=== PATIENT | male | born 1995 | race Caucasian/White ===

== ENCOUNTER 2023-08-21 16:33 | Observation (INO) ==
[2023-08-21 17:28] LABS: Appearance Urine Clear (Clear); Bacteria Urine Automated Negative (Negative); Bilirubin Urine Negative (Negative); Blood Urine Negative (Negative); Color Urine Dark Yellow; Epithelial Cell Urine Auto >30 /lpf (0-5); Glucose Urine UA Negative (Negative); Ketones Urine Trace (Negative); Leukocyte Esterase Urine Negative (Negative); Nitrite Urine Negative (Negative); Protein Urine Trace (Negative); RBC Urine Automated 0-4 /hpf (0-4); Specific Gravity Urine 1.027 (1.000-1.030); Urobilinogen Urine Negative (Negative); pH Urine 5.5 (4.5-7.5)
[2023-08-21] MEDS ORDERED: ONDANSETRON INJ 2 MG/ML 2 ML VIAL IV STA (17:32)
[2023-08-21] MEDS ORDERED: SODIUM CHLORIDE 0.9% 1,000 ML IV ONE (17:32)
--- NOTE | 2023-08-21 17:38 | Emergency Department Note ---
History of Present Illness General Chief complaint: Abdominal Pain Stated complaint: ABDOMINAL PAIN, NAUSEA/VOMITING Time Seen by Provider: 08/21/23 17:11 History of Present Illness Maximum Pain Intensity: 5 28-year-old male presents emergency department he states that at around 11 AM today he had upper quadrant abdominal pain nausea and vomiting. Patient states that he did eat breakfast and then began vomiting. Patient's had prior episodes of the same but have not lasted this long. Patient denies any fever denies anorexia at denies right lower quadrant abdominal pain denies urinary symptoms denies testicular pain. Denies any recent infections. Patient thought in the past that he was developing irritable bowel syndrome. Patient did call the nurse at the primary care physician's office and was told to come the emergency department due to abdominal pain and vomiting. Home Medications Medication Instructions Recorded Confirmed Type rizatriptan 5 mg tablet See Rx Instructions PO .COMPLEX 08/21/23 08/21/23 History PRN Migraine Headache Allergies Allergy/AdvReac Type Severity Reaction Status Date / Time No Known Allergies Allergy Verified 08/21/23 18:45 Past Med/Surg History Medical History Hypothyroidism Surgical History S/P adenoidectomy S/P myringotomy with insertion of tube Family History Grandmother Diabetes Coronary heart disease Heart disease Sister Hyperthyroidism Rheumatoid arthritis Denies family history of Ovarian cancer Prostate cancer Myocardial infarction Breast cancer Colorectal cancer Social History Smoking Status: Never smoker Second Hand Exposure: No; Hx Alcohol Use: No Hx Substance Use: No Preferred Language: Fijian Visual Impairment: No Limitations Beliefs That Will Affect Care: None marital status: Single Current Living Situation: Family current occupational status: unemployed Feels Safe at Home: Yes Childhood Exposure to Second-Hand Smoke: No Diet: regular caffeine: Yes during the past year weight has: increased > 10 lbs Dental Care, Regularly: Yes Physical Activity Frequency: Daily Physical Activity Frequency Comment: walking dogs Seatbelt Use: always Sunscreen Use: Yes Assistive Devices: Contacts and Glasses Review of Systems A total of 10 systems reviewed and were otherwise negative Gastrointestinal: + abdominal pain and + vomiting Physical Exam Vital Signs Vital Signs - 24 hr 08/21/23 16:41 08/21/23 17:23 08/21/23 17:41 Temperature 36.7 C Temperature Source Temporal Artery Scan Pulse Rate 80 60 Pulse Rate [Apical] 67 Pulse Rate from SpO2 Sensor 65 Pulse Rhythm Regular Pulse Strength Normal Respiratory Rate 20 16 19 Respiratory Effort / Characteristics Non-Labored Spontaneous Respiratory Depth Normal Respiratory Pattern Regular Blood Pressure 96/73 L Blood Pressure [Left Arm] 130/69 Blood Pressure Mean 80 Blood Pressure Mean [Left Arm] 89 Blood Pressure Position Sitting Pulse Oximetry 97 98 99 Oxygen Delivery Method Room Air Room Air Sepsis Recent Fever Within 48 Hours No Sepsis New/Unexplained Change in Mental Status No Sepsis Action Taken by Nursing No Action Required 08/21/23 17:43 08/21/23 18:30 08/21/23 19:00 Temperature Temperature Source Pulse Rate 60 70 68 Pulse Rate [Apical] Pulse Rate from SpO2 Sensor Pulse Rhythm Pulse Strength Respiratory Rate 21 18 Respiratory Effort / Characteristics Respiratory Depth Respiratory Pattern Blood Pressure Blood Pressure [Left Arm] Blood Pressure Mean Blood Pressure Mean [Left Arm] Blood Pressure Position Pulse Oximetry Oxygen Delivery Method Sepsis Recent Fever Within 48 Hours Sepsis New/Unexplained Change in Mental Status Sepsis Action Taken by Nursing GENERAL: Patient is awake alert in no acute distress patient is resting comfortably and showing no signs of anxiety EYES: The conjunctivae are clear. The pupils are round and reactive. EARS, NOSE, MOUTH AND THROAT: The nose is without any evidence of any deformity. Mucous membranes are moist. Tongue is midline. NECK: The neck is nontender and supple. RESPIRATORY: Normal respiratory effort is noted there is no evidence of wheezing rhonchi or rales CARDIOVASCULAR: Regular rate and rhythm noted there no murmurs rubs or gallops normal S1 normal S2. GASTROINTESTINAL: The abdomen is soft. Abdomen has mild midepigastric tenderness to palpation. There is no right upper quadrant or right lower quadrant tenderness, there is no rebound rigidity or guarding. BACK: No midline tenderness or or step-off noted range of motion in flexion extension as well as rotation no signs of muscle spasm noted MUSCULOSKELETAL/EXTREMITIES: There is no evidence of gross deformity full range of motion is noted in the hips and shoulders. SKIN: There is no obvious evidence of any rash. There are no petechiae, pallor or cyanosis noted. NEUROLOGIC: Patient is awake alert and oriented x3 strength is symmetric Course Reevaluation(s) Reevaluation #1: Patient was started on IV Zosyn. Resting in no distress Time: 19:00 Consultations Consultation #1: Case was discussed with Dr. Azul from GI states does not need an ERCP Time: 18:00 Consultation #2: Spoke with Dr. Prado from surgery, he will see the patient admit the patient for cholecystitis Time: 18:05 Administered Medications Discontinued Medications Sodium Chloride (Nss) 1,000 mls @ 999 mls/hr IV .Q1H1M ONE Stop: 08/21/23 18:32 Last Infusion: 08/21/23 18:51 Dose: Infused Documented By: Admin: 08/21/23 17:43 Dose: 999 mls/hr Documented By: DE Piperacillin Sod/Tazobactam (Sod 4.5 gm/ Dextrose) 100 mls @ 200 mls/hr IV NOW ONE; Protocol Stop: 08/21/23 19:07 Last Admin: 08/21/23 18:51 Dose: Not Given Documented By: KALIA Ioversol (Optiray 320 500ml) 86 ml IV ONCE ONE Stop: 08/21/23 18:04 Last Admin: 08/21/23 18:03 Dose: 86 ml Documented By: MARGIE Ondansetron HCl (Ondansetron Inj 2 Mg/Ml 2 Ml Vial) 4 mg IV NOW STA Stop: 08/21/23 17:33 Last Admin: 08/21/23 17:43 Dose: 4 mg Documented By: DE Piperacillin Sod/Tazobactam Sod (Piperacillin/Tazobactam 4.5 Gm/100ml D5w) Confirm Administered Dose 4.5 gm IV .STK-MED ONE Stop: 08/21/23 18:44 Last Admin: 08/21/23 18:48 Dose: 4.5 gm Documented By: KALIA Medical Decision Making Medical Records Attestation: I reviewed the patient's medical records. Home Medications Current Medication List: was personally reviewed by me Laboratory Data Attestation: I reviewed the patient's lab results. Labs interpreted by me mild leukocytosis mild elevation in AST 08/21/23 17:00 08/21/23 18:20 Lab Results 08/21/23 08/21/23 08/21/23 Range/Units 16:05 17:00 18:20 WBC 11.29 H (4.8-10.8) K/ul RBC 6.11 H (4.70-6.10) M/uL Hgb 16.9 (14.0-18.0) g/dl Hct 49.6 (42.0-52.0) % MCV 81.2 (80.0-100.0) fL MCH 27.7 (25.0-34.0) pg MCHC 34.1 (32.0-36.0) g/dL RDW Std Deviation 37.6 (36.4-46.3) fL RDW Coeff of Marcelina 13.2 (11.5-14.5) % Plt Count 387 (130-400) K/uL MPV 9.6 (9.4-12.4) fL Immature Gran % (Auto) 0.5 % Neut % (Auto) 78.5 % Lymph % (Auto) 14.5 % [place] % (Auto) 5.0 % Eos % (Auto) 0.7 % Baso % (Auto) 0.8 % Neut # (Auto) 8.86 H (1.40-6.50) K/uL Lymph # (Auto) 1.64 (1.20-3.40) K/uL [place] # (Auto) 0.56 (0.11-0.59) K/uL Eos # (Auto) 0.08 (0.00-0.50) K/uL Baso # (Auto) 0.09 (0.00-0.20) K/uL Immature Gran # (Auto) 0.06 (0.01-0.20) K/uL Sodium 138 (136-145) mmol/L Potassium TNP 3.4 L Chloride 105 (98-107) mmol/L Carbon Dioxide 26 (21-32) mmol/L Anion Gap 7 (3-11) BUN 9 (6-23) mg/dl Creatinine 0.82 (0.6-1.4) mg/dl Est Cr Clr Drug Dosing 170.7 ml/min Est GFR ( Amer) 139.5 ml/min Est GFR (Non-Af Amer) 120.3 ml/min BUN/Creatinine Ratio 11.0 (10-20) Glucose 109 H (70-99(Fasting)) mg/dl Calcium 9.3 (8.6-10.3) mg/dl Total Bilirubin 0.6 (0.2-1.0) mg/dl AST TNP 32 ALT 66 H (7-52) U/L Alkaline Phosphatase 119 H (34-104) U/L Total Protein 8.2 (6.0-8.3) gm/dl Albumin 4.6 (3.4-5.0) gm/dl Globulin 3.6 (2.5-4.0) gm/dl Albumin/Globulin Ratio 1.3 (0.9-2) Lipase 17 (11-82) U/L Urine Color Dark Yellow Urine Appearance Clear (Clear) Urine pH 5.5 (4.5-7.5) Ur Specific [place] 1.027 (1.000-1.030) Urine Protein Trace H (Negative) Urine Glucose (UA) Negative (Negative) Urine Ketones Trace H (Negative) Urine Blood Negative (Negative) Urine Nitrite Negative (Negative) Urine Bilirubin Negative (Negative) Urine Urobilinogen Negative (Negative) Ur Leukocyte Esterase Negative (Negative) Urine WBC (Auto) 1-5 (0-5) /hpf Urine RBC (Auto) 0-4 (0-4) /hpf U Hyaline Cast (Auto) 0 (0-5) /lpf U Epithel Cells (Auto) >30 H (0-5) /lpf Urine Bacteria (Auto) Negative (Negative) Imaging Data Radiologist's Impression: Abdomen/Pelvis CT 08/21/23 17:[address] WITH IV CONTRAST CT DOSE: 1565.19 mGy.cm HISTORY: Generalized abdominal pain. Vomiting. TECHNIQUE: Multiaxial CT images of the abdomen and pelvis were performed following the use of intravenous contrast. A dose lowering technique was utilized adhering to the principles of ALARA. COMPARISON STUDY: None. FINDINGS: The lung bases are clear. No pneumoperitoneum. No pneumatosis. No acute fractures. No hepatic or splenic masses. The main portal vein is patent. The adrenal glands, pancreas, kidneys are unremarkable. Normal caliber abdominal aorta. No retroperitoneal or pelvic lymphadenopathy. Mild bladder wall thickening is likely due to underdistention. Trace pelvic free fluid. There is mild fat stranding within the central mesentery. No mesenteric lymphadenopathy. The gallbladder is distended. No gallbladder wall thickening or pericholecystic inflammatory change. Multiple stones within the neck/cystic duct of the gallbladder dominant stone within the neck of the gallbladder measures 3 cm. No hydronephrosis. No bowel wall thickening or obstruction. Normal appendix. IMPRESSION: 1. Multiple stones within the gallbladder neck/cystic duct with a distended gallbladder. Therefore, this could represent an impacted gallstone in the setting of early acute cholecystitis. No gallbladder wall thickening or pericholecystic inflammatory change at this time. Clinical correlation and/or nuclear medicine HIDA scan can be performed for further evaluation. 2. Mild fat stranding within the central mesentery. This favors a mild mesenteric panniculitis. 3. No bowel wall thickening or obstruction. 4. Normal appendix. 5. Trace pelvic free fluid. 6. Mild bladder wall thickening. This is likely due to underdistention. Recommend correlation with urinalysis to exclude a cystitis. ACT 112: Negative or not required by law. Electronically signed by: Gustavo Valenzuela M.D. 08/21/2023 6:25 PM MDM Narrative Medical decision making differential diagnosis includes gastritis, gastroenteritis, biliary colic, pancreatitis, metabolic derangement, bowel obstruction, early appendicitis, dehydration Plan is to check labs, CT abdomen pelvis, give IV fluids, Zofran I did review the patient's note of 08/30/2022 from primary care in which the patient had mood disorder but there is no complaints of abdominal pain at that time Patient has a positive CAT scan for gallstones and probably early cholecystitis. Patient's labs are showing a sign of leukocytosis. Patient was started on IV Zosyn. Patient will be admitted to general surgery for surgical intervention Impression & Plan Cholecystitis with cholelithiasis Discharge Plan Visit Data Chief Complaint: Abdominal Pain Stated Complaint: ABDOMINAL PAIN, NAUSEA/VOMITING ED Provider: Rito Purdy Discharge Problem: Cholecystitis with cholelithiasis Patient Disposition: Admitted As Inpatient Forms Stand Alone Forms: [facility], Important Visit Information Prescriptions Prescriptions: No Action rizatriptan 5 mg tablet See Rx Instructions PO .COMPLEX PRN (Reason: Migraine Headache) Rx Instructions: take 1 tablet at onset of headache; if no relief, may repeat 1 tablet after at least 2 hrs PO Referrals Referrals: Aldo Gibbs MD [Primary Care Provider] - Discharge Problem: Cholecystitis with cholelithiasis Qualifiers: Cholelithiasis location: gallbladder Cholecystitis acuity: acute Biliary obstruction: without biliary obstruction Qualified Code(s): K80.00 - Calculus of gallbladder with acute cholecystitis without obstruction
[2023-08-21 17:43] LABS: Basophils # (auto) 0.09 K/uL (0.00-0.20); Basophils % (auto) 0.8 %; Eosinophils # (auto) 0.08 K/uL (0.00-0.50); Eosinophils % (auto) 0.7 %; Hematocrit (blood only) 49.6 % (42.0-52.0); Hemoglobin 16.9 g/dl (14.0-18.0); Immature Granulocytes # (auto) 0.06 K/uL (0.01-0.20); Immature Granulocytes % (auto) 0.5 %; Lymphocytes # (auto) 1.64 K/uL (1.20-3.40); Lymphocytes % (auto) 14.5 %; Mean Corpuscular Hemoglobin 27.7 pg (25.0-34.0); Mean Corpuscular Hgb Conc 34.1 g/dL (32.0-36.0); Mean Corpuscular Volume 81.2 fL (80.0-100.0); Mean Platelet Volume 9.6 fL (9.4-12.4); Monocytes # (auto) 0.56 K/uL (0.11-0.59); Neutrophils # (auto) 8.86 K/uL (1.40-6.50); Neutrophils % (auto) 78.5 %; Platelet Count 387 K/uL (130-400); RDW Coefficient of Variation 13.2 % (11.5-14.5); RDW Standard Deviation 37.6 fL (36.4-46.3); Red Blood Count 6.11 M/uL (4.70-6.10); White Blood Count 11.29 K/ul (4.8-10.8)
[2023-08-21 17:51] LABS: Alanine Aminotransferase 66 U/L (7-52); Albumin Globulin Ratio 1.3 (0.9-2); Albumin Level 4.6 gm/dl (3.4-5.0); Alkaline Phosphatase 119 U/L (34-104); Anion Gap 7 (3-11); Bilirubin,Total 0.6 mg/dl (0.2-1.0); Blood Urea Nitrogen 9 mg/dl (6-23); Calcium 9.3 mg/dl (8.6-10.3); Carbon Dioxide 26 mmol/L (21-32); Chloride 105 mmol/L (98-107); Creatinine Clr Calc Pharmacy 170.7 ml/min; Est GFR (African American) 139.5 ml/min; Est GFR (Non-African American) 120.3 ml/min; Globulin 3.6 gm/dl (2.5-4.0); Glucose 109 mg/dl (70-99(Fasting)); Lipase 17 U/L (11-82); Sodium 138 mmol/L (136-145); Total Protein 8.2 gm/dl (6.0-8.3)
[2023-08-21] MEDS ORDERED: OPTIRAY 320 500ml IV ONE (18:03)
[2023-08-21 18:18] LABS: Cast Urine Automated 0 /lpf (0-5)
--- NOTE | 2023-08-21 18:27 | CT Scan Report ---
ABDOMEN AND PELVIS CT WITH IV CONTRAST CT DOSE: 1565.19 mGy.cm HISTORY: Generalized abdominal pain. Vomiting. TECHNIQUE: Multiaxial CT images of the abdomen and pelvis were performed following the use of intrave nous contrast. A dose lowering technique was utilized adhering to the principles of ALARA. COMPARISON STUDY: None. FINDINGS: The lung bases are clear. No pneumoperitoneum. No pneumatosis. No acute fractures. No hepat ic or splenic masses. The main portal vein is patent. The adrenal glands, pancreas, kidneys are unrem arkable. Normal caliber abdominal aorta. No retroperitoneal or pelvic lymphadenopathy. Mild bladder w all thickening is likely due to underdistention. Trace pelvic free fluid. There is mild fat stranding within the central mesentery. No mesenteric lymphadenopathy. The gallbladder is distended. No gallbl adder wall thickening or pericholecystic inflammatory change. Multiple stones within the neck/cystic duct of the gallbladder dominant stone within the neck of the gallbladder measures 3 cm. No hydroneph rosis. No bowel wall thickening or obstruction. Normal appendix. IMPRESSION: 1. Multiple stones within the gallbladder neck/cystic duct with a distended gallbladder. Therefore, t his could represent an impacted gallstone in the setting of early acute cholecystitis. No gallbladder wall thickening or pericholecystic inflammatory change at this time. Clinical correlation and/or nuc lear medicine HIDA scan can be performed for further evaluation. 2. Mild fat stranding within the central mesentery. This favors a mild mesenteric panniculitis. 3. No bowel wall thickening or obstruction. 4. Normal appendix. 5. Trace pelvic free fluid. 6. Mild bladder wall thickening. This is likely due to underdistention. Recommend correlation with ur inalysis to exclude a cystitis. ACT 112: Negative or not required by law. Electronically signed by: Gustavo Valenzuela M.D. 08/21/2023 6:25 PM
[2023-08-21] MEDS ORDERED: PIPERACILLIN/TAZOBACTAM 4.5 GM in DEXTROSE 5% MINI-B 100 ML IV ONE (18:38)
[2023-08-21] MEDS ORDERED: PIPERACILLIN/TAZOBACTAM 4.5 GM/100ML D5W IV ONE (18:43)
[2023-08-21 18:58] LABS: Potassium 3.4 mmol/L (3.5-5.1)
--- NOTE | 2023-08-21 19:59 | History & Physical Report ---
Date of Service August 21, 2023 Assessment & Plan (1) Cholecystitis with cholelithiasis: Plan 28-year-old gentleman with acute cholecystitis. I discussed with him the risks and benefits of a laparoscopic cholecystectomy. We discussed the postoperative course and recovery. All his questions were answered. We will admit him to the hospital for IV fluids and IV antibiotics. He will be n.p.o. We will plan for laparoscopic cholecystectomy in the morning. History of Present Illness Primary Care Provider: Aldo Gibbs MD 28-year-old gentleman presents with epigastric and right upper quadrant pain starting at 9 AM this morning. It has not relented. It is radiating to his back. It is dull with some sharp stabbing pain. Positive nausea and vomiting. Positive chills. He states that he has had 3 episodes in the last 3 months similar to this, however not as bad. CT scan demonstrates large stone in the neck of the gallbladder, with a distended gallbladder. Allergies Allergy/AdvReac Type Severity Reaction Status Date / Time No Known Allergies Allergy Verified 08/21/23 18:45 Home Medications Medication Instructions Recorded Confirmed Type rizatriptan 5 mg tablet See Rx Instructions PO .COMPLEX 08/21/23 08/21/23 History PRN Migraine Headache Past Med/Surg History Medical History Hypothyroidism Surgical History S/P adenoidectomy S/P myringotomy with insertion of tube Family History Grandmother Diabetes Coronary heart disease Heart disease Sister Hyperthyroidism Rheumatoid arthritis Denies family history of Ovarian cancer Prostate cancer Myocardial infarction Breast cancer Colorectal cancer Social History Smoking Status: Never smoker Second Hand Exposure: No; Hx Alcohol Use: No Hx Substance Use: No Preferred Language: Albanian Visual Impairment: No Limitations Beliefs That Will Affect Care: None marital status: Single Current Living Situation: Family current occupational status: unemployed Feels Safe at Home: Yes Childhood Exposure to Second-Hand Smoke: No Diet: regular caffeine: Yes during the past year weight has: increased > 10 lbs Dental Care, Regularly: Yes Physical Activity Frequency: Daily Physical Activity Frequency Comment: walking dogs Seatbelt Use: always Sunscreen Use: Yes Assistive Devices: Contacts and Glasses Review of Systems Review of Systems: All systems reviewed & are unremarkable except as noted in HPI & below Physical Exam Constitutional: WD/WN, vitals as above Eyes: PERRL, conjunctivae normal, anicteric sclerae Neck: trachea midline, no thyromegaly Respiratory: normal respiratory effort; no respiratory distress and no labored breathing Cardiovascular: Rate/Rhythm: regular rate and regular rhythm Gastrointestinal (Abdomen): Inspection/Auscultation: abdomen normal to inspection; abdomen not distended Percussion/Palpation: + abdomen tender (RUQ, mild) and abdomen soft; no guarding and abdomen not rigid Skin: no rashes, warm and dry Psychiatric: A+Ox3, euthymic affect Results & Data Results & Data Vital Signs (Past 12 Hours) Vital Signs Temp Pulse Pulse Resp BP BP Pulse Ox 08/21/23 19:00 68 18 08/21/23 18:30 70 21 08/21/23 17:43 60 08/21/23 17:41 60 19 99 08/21/23 17:23 67 16 130/69 98 08/21/23 16:41 36.7 C 80 20 96/73 L 97 O2 Del Method 08/21/23 19:00 08/21/23 18:30 08/21/23 17:43 08/21/23 17:41 Room Air 08/21/23 17:23 08/21/23 16:41 Room Air Laboratory Results 08/21/23 08/21/23 08/21/23 Range/Units 18:20 17:00 16:05 WBC 11.29 H (4.8-10.8) K/ul RBC 6.11 H (4.70-6.10) M/uL Hgb 16.9 (14.0-18.0) g/dl Hct 49.6 (42.0-52.0) % MCV 81.2 (80.0-100.0) fL MCH 27.7 (25.0-34.0) pg MCHC 34.1 (32.0-36.0) g/dL RDW Std Deviation 37.6 (36.4-46.3) fL RDW Coeff of Marcelina 13.2 (11.5-14.5) % Plt Count 387 (130-400) K/uL MPV 9.6 (9.4-12.4) fL Immature Gran % (Auto) 0.5 % Neut % (Auto) 78.5 % Lymph % (Auto) 14.5 % [place] % (Auto) 5.0 % Eos % (Auto) 0.7 % Baso % (Auto) 0.8 % Neut # (Auto) 8.86 H (1.40-6.50) K/uL Lymph # (Auto) 1.64 (1.20-3.40) K/uL [place] # (Auto) 0.56 (0.11-0.59) K/uL Eos # (Auto) 0.08 (0.00-0.50) K/uL Baso # (Auto) 0.09 (0.00-0.20) K/uL Immature Gran # (Auto) 0.06 (0.01-0.20) K/uL Sodium 138 (136-145) mmol/L Potassium 3.4 L TNP Chloride 105 (98-107) mmol/L Carbon Dioxide 26 (21-32) mmol/L Anion Gap 7 (3-11) BUN 9 (6-23) mg/dl Creatinine 0.82 (0.6-1.4) mg/dl Est Cr Clr Drug Dosing 170.7 ml/min Est GFR ( Amer) 139.5 ml/min Est GFR (Non-Af Amer) 120.3 ml/min BUN/Creatinine Ratio 11.0 (10-20) Glucose 109 H (70-99(Fasting)) mg/dl Calcium 9.3 (8.6-10.3) mg/dl Total Bilirubin 0.6 (0.2-1.0) mg/dl AST 32 TNP ALT 66 H (7-52) U/L Alkaline Phosphatase 119 H (34-104) U/L Total Protein 8.2 (6.0-8.3) gm/dl Albumin 4.6 (3.4-5.0) gm/dl Globulin 3.6 (2.5-4.0) gm/dl Albumin/Globulin Ratio 1.3 (0.9-2) Lipase 17 (11-82) U/L Urine Color Dark Yellow Urine Appearance Clear (Clear) Urine pH 5.5 (4.5-7.5) Ur Specific [place] 1.027 (1.000-1.030) Urine Protein Trace H (Negative) Urine Glucose (UA) Negative (Negative) Urine Ketones Trace H (Negative) Urine Blood Negative (Negative) Urine Nitrite Negative (Negative) Urine Bilirubin Negative (Negative) Urine Urobilinogen Negative (Negative) Ur Leukocyte Esterase Negative (Negative) Urine WBC (Auto) 1-5 (0-5) /hpf Urine RBC (Auto) 0-4 (0-4) /hpf U Hyaline Cast (Auto) 0 (0-5) /lpf U Epithel Cells (Auto) >30 H (0-5) /lpf Urine Bacteria (Auto) Negative (Negative) Diagnostic Findings ABDOMEN AND PELVIS CT WITH IV CONTRAST CT DOSE: 1565.19 mGy.cm HISTORY: Generalized abdominal pain. Vomiting. TECHNIQUE: Multiaxial CT images of the abdomen and pelvis were performed following the use of intravenous contrast. A dose lowering technique was utilized adhering to the principles of ALARA. COMPARISON STUDY: None. FINDINGS: The lung bases are clear. No pneumoperitoneum. No pneumatosis. No acute fractures. No hepatic or splenic masses. The main portal vein is patent. The adrenal glands, pancreas, kidneys are unremarkable. Normal caliber abdominal aorta. No retroperitoneal or pelvic lymphadenopathy. Mild bladder wall thickening is likely due to underdistention. Trace pelvic free fluid. There is mild fat stranding within the central mesentery. No mesenteric lymphadenopathy. The gallbladder is distended. No gallbladder wall thickening or pericholecystic inflammatory change. Multiple stones within the neck/cystic duct of the gallbladder dominant stone within the neck of the gallbladder measures 3 cm. No hydronephrosis. No bowel wall thickening or obstruction. Normal appendix. IMPRESSION: 1. Multiple stones within the gallbladder neck/cystic duct with a distended gallbladder. Therefore, this could represent an impacted gallstone in the setting of early acute cholecystitis. No gallbladder wall thickening or pericholecystic inflammatory change at this time. Clinical correlation and/or nuclear medicine HIDA scan can be performed for further evaluation. 2. Mild fat stranding within the central mesentery. This favors a mild mesenteric panniculitis. 3. No bowel wall thickening or obstruction. 4. Normal appendix. 5. Trace pelvic free fluid. 6. Mild bladder wall thickening. This is likely due to underdistention. Recommend correlation with urinalysis to exclude a cystitis. ACT 112: Negative or not required by law. Electronically signed by: Gustavo Valenzuela M.D. 08/21/2023 6:25 PM Code Status & VTE Plan VTE Prophylaxis Plan VTE Prophylaxis will be ordered: Yes (1) Cholecystitis with cholelithiasis Cholelithiasis location: gallbladder Cholecystitis acuity: acute Biliary obstruction: without biliary obstruction Qualified Code(s): K80.00 - Calculus of gallbladder with acute cholecystitis without obstruction
[2023-08-21] MEDS ORDERED: PROMETHAZINE HCL 12.5 MG in SODIUM CHLORIDE 0.9% 50 ML IV PRN (21:09)
[2023-08-21] MEDS ORDERED: MoRPHine SULFATE 2 MG/ML CARP IV PRN (21:09)
[2023-08-21] MEDS ORDERED: ONDANSETRON INJ 2 MG/ML 2 ML VIAL IV PRN (21:09)
[2023-08-21] MEDS ORDERED: diphenhydrAMINE 50 MG/ML VIAL IV PRN (21:09)
[2023-08-21] MEDS: SODIUM CHLORIDE 0.9% 1,000 ML IV SCH (21:39)
[2023-08-21 21:47] LABS: Basophils # (auto) 0.08 K/uL (0.00-0.20); Basophils % (auto) 0.5 %; Hematocrit (blood only) 43.2 % (42.0-52.0); Hemoglobin 14.8 g/dl (14.0-18.0); Immature Granulocytes # (auto) 0.09 K/uL (0.01-0.20); Immature Granulocytes % (auto) 0.6 %; Lymphocytes % (auto) 9.4 %; Mean Corpuscular Hemoglobin 27.6 pg (25.0-34.0); Mean Corpuscular Hgb Conc 34.3 g/dL (32.0-36.0); Mean Corpuscular Volume 80.6 fL (80.0-100.0); Mean Platelet Volume 9.5 fL (9.4-12.4); Monocytes # (auto) 0.65 K/uL (0.11-0.59); Monocytes % (auto) 4.3 %; Neutrophils # (auto) 12.74 K/uL (1.40-6.50); Neutrophils % (auto) 85.2 %; Platelet Count 353 K/uL (130-400); RDW Coefficient of Variation 13.1 % (11.5-14.5); RDW Standard Deviation 37.3 fL (36.4-46.3); Red Blood Count 5.36 M/uL (4.70-6.10); White Blood Count 14.96 K/ul (4.8-10.8)
[2023-08-21 22:03] LABS: Albumin Level 4.1 gm/dl (3.4-5.0); BUN Creatinine Ratio 8.4 (10-20); Bilirubin Direct 0.1 mg/dl (0-0.2); Bilirubin,Total 0.8 mg/dl (0.2-1.0); Calcium 8.4 mg/dl (8.6-10.3); Creatinine Clr Calc Pharmacy 168.6 ml/min; Est GFR (African American) 138.8 ml/min; Est GFR (Non-African American) 119.7 ml/min; Potassium 3.4 mmol/L (3.5-5.1)
[2023-08-21] MEDS: ENOXAPARIN INJ 40 MG/0.4 ML SYR SQ SCH (23:09)
[2023-08-21] MEDS: PIPERACILLIN/TAZOBACTAM 4.5 GM in DEXTROSE 5% MINI-B 100 ML IV SCH (23:09)
[2023-08-22] MEDS ORDERED: HYDROmorphone INJ 0.5 MG/0.5 ML SYR IV STA (01:16)
[2023-08-22 07:16] LABS: Basophils # (auto) 0.08 K/uL (0.00-0.20); Basophils % (auto) 0.6 %; Eosinophils # (auto) 0.02 K/uL (0.00-0.50); Eosinophils % (auto) 0.2 %; Hematocrit (blood only) 41.6 % (42.0-52.0); Hemoglobin 14.8 g/dl (14.0-18.0); Immature Granulocytes # (auto) 0.06 K/uL (0.01-0.20); Immature Granulocytes % (auto) 0.5 %; Lymphocytes # (auto) 2.12 K/uL (1.20-3.40); Mean Corpuscular Hgb Conc 35.6 g/dL (32.0-36.0); Mean Corpuscular Volume 78.6 fL (80.0-100.0); Mean Platelet Volume 9.5 fL (9.4-12.4); Monocytes # (auto) 1.07 K/uL (0.11-0.59); Monocytes % (auto) 8.6 %; Neutrophils % (auto) 73.1 %; Platelet Count 332 K/uL (130-400); RDW Coefficient of Variation 13.1 % (11.5-14.5); RDW Standard Deviation 36.9 fL (36.4-46.3); Red Blood Count 5.29 M/uL (4.70-6.10); White Blood Count 12.45 K/ul (4.8-10.8)
--- NOTE | 2023-08-22 07:17 | Surgery Progress Note ---
Date of Service August 22, 2023 Assessment & Plan (1) Cholecystitis with cholelithiasis: Plan 28-year-old gentleman with acute cholecystitis. I discussed with him the risks and benefits of a laparoscopic cholecystectomy. We discussed the postoperative course and recovery. All his questions were answered. Consent has been obtained. We will take him to the operating room at the earliest convenience today. Admission and Anticipated Discharge Date Admission Date: August 21, 2023 Subjective States he is feeling better this morning. No nausea or vomiting. Minimal pain. No fevers or chills. Physical Exam Physical Exam: AFVSS NAD, A&O x 3 RRR CTA bilaterally Abdomen: Soft, NTND Results & Data Vital Signs (Past 12 Hours) Vital Signs Temp Pulse Resp BP Pulse Ox O2 Del Method 08/21/23 22:10 Room Air 08/21/23 22:09 18 08/21/23 21:10 36.5 C 65 18 134/82 100 Room Air 08/21/23 20:45 Room Air (1) Cholecystitis with cholelithiasis Biliary obstruction: without biliary obstruction Cholecystitis acuity: acute Cholelithiasis location: gallbladder Qualified Code(s): K80.00 - Calculus of g allbladder with acute cholecystitis without obstruction
[2023-08-22] MEDS: PIPERACILLIN/TAZOBACTAM 4.5 GM in DEXTROSE 5% MINI-B 100 ML IV SCH ×2 (07:29→15:52)
[2023-08-22 07:36] LABS: Albumin Level 3.9 gm/dl (3.4-5.0); BUN Creatinine Ratio 7.4 (10-20); Bilirubin Direct 0.2 mg/dl (0-0.2); Bilirubin,Total 0.9 mg/dl (0.2-1.0); Calcium 8.2 mg/dl (8.6-10.3); Creatinine Clr Calc Pharmacy 172.4 ml/min; Est GFR (African American) 140.2 ml/min; Est GFR (Non-African American) 120.9 ml/min; Potassium 3.5 mmol/L (3.5-5.1); Total Protein 6.5 gm/dl (6.0-8.3)
[2023-08-22] MEDS ORDERED: HYDROmorphone INJ 1 MG/ML SYRINGE IV PRN (08:07)
[2023-08-22] MEDS ORDERED: ePHEDrine sulfate 50 MG/ML AMP IV PRN (08:07)
[2023-08-22] MEDS ORDERED: PROMETHAZINE HCL 6.25 MG in SODIUM CHLORIDE 0.9% 50 ML IV PRN (08:07)
[2023-08-22] MEDS ORDERED: ATROPINE SULFATE 0.1 MG/ML 10ML SYR IV PRN (08:07)
[2023-08-22] MEDS ORDERED: ONDANSETRON INJ 2 MG/ML 2 ML VIAL IV PRN (08:07)
[2023-08-22] MEDS ORDERED: fentaNYL citrate PF 100 MCG/2 ML VIAL IV PRN (08:07)
--- NOTE | 2023-08-22 08:07 | Anesthesiology Consultation ---
Date of Service August 22, 2023 Assessment & Plan (1) Encounter for pre-operative examination: Chart Review Chart Review: Acceptable Risk for Surgery and Patient NOT seen in Pre Admission Testing Consults Requested none History Surgery Operation Date: 08/22/23 08:30 Proposed Procedures p Laparoscopic Cholecystectomy - Adam Prado MD Height/Weight Height: 6 ft Weight: 108 kg Allergies Allergy/AdvReac Type Severity Reaction Status Date / Time No Known Allergies Allergy Verified 08/21/23 18:45 Medications Home Medications Medication Instructions Recorded Confirmed Last Taken rizatriptan 5 mg tablet See Rx Instructions PO .COMPLEX 08/21/23 08/21/23 Unknown PRN Migraine Headache Active Medications Generic Name Dose Route Start Last Admin Trade Name Freq PRN Reason Stop Dose Admin Diphenhydramine HCl 25 mg 08/21/23 21:09 08/22/23 01:22 Diphenhydramine 50 Mg/Ml Vial IV 09/20/23 21:08 25 mg Q4H PRN Administration hives, itching or insomnia Enoxaparin Sodium 40 mg 08/21/23 21:09 08/21/23 23:09 Enoxaparin Inj 40 Mg/0.4 Ml Syr SQ 09/20/23 21:08 40 mg PM NORMAN Administration Sodium Chloride 1,000 mls @ 100 mls/hr 08/21/23 21:09 08/21/23 21:39 Nss IV 09/20/23 21:08 100 mls/hr .Q10H NORMAN Administration Piperacillin Sod/Tazobactam 100 mls @ 25 mls/hr 08/22/23 00:00 08/22/23 07:29 Sod 4.5 gm/ Dextrose IV 09/01/23 00:00 25 mls/hr Q8H NORMAN Administration Protocol Morphine Sulfate 2 mg 08/21/23 21:09 08/21/23 23:09 Morphine Sulfate 2 Mg/Ml Carp IV 09/04/23 21:08 2 mg Q3H PRN Administration Pain (1,2,3,4,5) & Pre PT Ondansetron HCl 4 mg 08/21/23 21:09 08/21/23 21:38 Ondansetron Inj 2 Mg/Ml 2 Ml Vial IV 09/20/23 21:08 4 mg Q4H PRN Administration Nausea And Vomiting NPO Date Last Intake of Fluids: 08/21/23 Time Last Intake of Fluids: 17:00 Date Last Intake of Solids: 08/21/23 Time Last Intake of Solids: 17:00 Past Medical History Medical History (Updated 08/22/23 @ 08:07 by Josh Acosta MD) Encounter for pre-operative examination Hypothyroidism Past Family History Family History Grandmother Diabetes Coronary heart disease Heart disease Sister Hyperthyroidism Rheumatoid arthritis Denies family history of Ovarian cancer Prostate cancer Myocardial infarction Breast cancer Colorectal cancer Past Surgical History Surgical History S/P adenoidectomy S/P myringotomy with insertion of tube Social History Smoking Status: Never smoker Hx Alcohol Use: No Hx Substance Use: No Physical Exam Vital Signs Last Vital Signs Temp 37.5 C 08/22/23 07:56 Pulse 81 08/22/23 07:56 Resp 18 08/22/23 07:56 BP 140/89 08/22/23 07:56 Pulse Ox 98 08/22/23 07:56 O2 Del Method Room Air 08/22/23 07:56 Testing Laboratory Results 08/22/23 06:37 08/22/23 06:37 Urine Color Dark Yellow 08/21/23 16:05 Urine Appearance Clear (Clear) 08/21/23 16:05 Urine pH 5.5 (4.5-7.5) 08/21/23 16:05 Ur Specific [place] 1.027 (1.000-1.030) 08/21/23 16:05 Urine Protein Trace (Negative) H 08/21/23 16:05 Urine Glucose (UA) Negative (Negative) 08/21/23 16:05 Urine Ketones Trace (Negative) H 08/21/23 16:05 Urine Nitrite Negative (Negative) 08/21/23 16:05 Ur Leukocyte Esterase Negative (Negative) 08/21/23 16:05 Urine WBC (Auto) 1-5 /hpf (0-5) 08/21/23 16:05 Urine RBC (Auto) 0-4 /hpf (0-4) 08/21/23 16:05 U Hyaline Cast (Auto) 0 /lpf (0-5) 08/21/23 16:05 U Epithel Cells (Auto) >30 /lpf (0-5) H 08/21/23 16:05 Urine Bacteria (Auto) Negative (Negative) 08/21/23 16:05
[2023-08-22] MEDS ORDERED: PROPOFOL IV EMULSION 10 MG/ML 20 ML VIAL IV ONE (08:50)
[2023-08-22] MEDS ORDERED: DEXAMETHASONE SOD INJ 4 MG/ML VIAL ONE (08:50)
[2023-08-22] MEDS ORDERED: ONDANSETRON INJ 2 MG/ML 2 ML VIAL ONE (08:50)
[2023-08-22] MEDS ORDERED: ROCURONIUM BROMIDE 10 MG/ML 5 ML VIAL IV ONE (08:50)
[2023-08-22] MEDS ORDERED: MIDAZOLAM HCL 1 MG/ML 2ML VIAL ONE (08:51)
[2023-08-22] MEDS ORDERED: fentaNYL citrate PF 100 MCG/2 ML VIAL ONE (08:51)
[2023-08-22] MEDS ORDERED: BUPIVACAINE/EPINEPHRINE 0.5% MPF 1:200,000 30 ML VIAL ONE (08:54)
[2023-08-22] MEDS ORDERED: HYDROmorphone INJ 2 MG/ML SYR/VIAL ONE (09:15)
[2023-08-22] MEDS ORDERED: PHENYLEPHRINE 100MCG/ML 10ML SYR IV ONE (09:44)
[2023-08-22] MEDS ORDERED: SUGAMMADEX SODIUM 200 MG/2 ML VIAL IV ONE (09:59)
--- NOTE | 2023-08-22 10:13 | Post Operative Brief Note ---
Immediate Post Op Note v1 Date of Surgery August 22, 2023 Pre & Post Diagnosis Operation Date: 08/22/23 08:30 Pre-Op Diagnosis: Cholecystitis with cholelithiasis Post-Op Diagnosis: Cholecystitis with cholelithiasis I identified the patient and participated in the time-out.: Yes Procedure Operation Date: 08/22/23 08:30 Actual Procedures p Laparoscopic Cholecystectomy(Not Applicable) - Adam Prado MD Surgeon Adam Prado MD Behavioral Modification Assistant None Estimated Blood Loss 5 Findings Consistent with Post-Op Diagnosis
--- NOTE | 2023-08-22 10:15 | Operative Report ---
Post Operative Report Pre & Post Diagnosis Operation Date: 08/22/23 08:30 Pre-Op Diagnosis: Cholecystitis with cholelithiasis Post-Op Diagnosis: Cholecystitis with cholelithiasis I identified the patient and participated in the time-out.: Yes Procedure Operation Date: 08/22/23 08:30 Actual Procedures p Laparoscopic Cholecystectomy(Not Applicable) - Adam Prado MD Surgeon Adam Prado MD Case Worker None Estimated Blood Loss 5 Findings Consistent with Post-Op Diagnosis acute cholecystitis Specimens gallbladder Drains none Anesthesia Type General Complications none Description of Procedure the patient was taken to the operating room, and placed supine on the operating table. A timeout was performed, perioperative antibiotics were administered, SCD boots were placed. After adequate anesthesia and analgesia was obtained, the abdomen was prepped and draped in the normal sterile fashion. Local anesthetic was injected into and around the proposed incision sites. An incision was made with a 15 blade scalpel in the supraumbilical region and carried down to the level of the fascia. The fascia was grasped with a trach hook, and a varies needle was used to enter the abdominal cavity. The abdomen was insufflated to a pressure of 15 mmHg, and a 11 mm trocar was placed in this location. A 10 mm, 30 degree laparoscope was placed into the abdominal cavity, and the abdomen was surveyed. The gallbladder was distended, taut, and very intrahepatic. Two 5 mm trochars were placed along the right costal margin, and one 5 mm trocar was placed in the subxiphoid region under direct visualization. The gallbladder was drained with an 18-gauge aspiration needle. Clear fluid returned from the gallbladder. The gallbladder was grasped and retracted cephalad and laterally, exposing the triangle of [place]. Dissection began in the triangle with a combination of blunt dissection with the [place] dissector, and judicious use of the hook cautery. The cystic duct and cystic artery were dissected free circumferentially, and a critical view of safety was obtained. The cystic duct and cystic artery were clipped and transected, and the gallbladder was removed from the gallbladder fossa with the hook cautery. The camera was switched to a 5 mm, the gallbladder was placed in an Endo Catch bag, and removed via the supraumbilical port site. The camera was switched back to the 10 mm camera, and the abdomen was surveyed again. Hemostasis was checked and attended, and was excellent. The abdomen was copiously irrigated and suctioned free. Again hemostasis was checked and was excellent. All trochars were removed under direct visualization. The abdomen was desufflated. The fascia in the 11 mm port site was closed with a 0 Vicryl suture. The skin was closed with a running 4-0 Monocryl subcuticular stitch. Dermabond was applied. The patient tolerated the procedure without complication, and was transferred in stable condition to the PACU. All inst rument, needle, and sponge counts were correct at the end of the case. I attest to the content of the Intraoperative Record and any orders documented therein. Any exceptions are noted below.
[2023-08-22] MEDS ORDERED: oxyCODONE/ACETAMINOPHEN 5mg/325mg TAB PO PRN (11:18)
[2023-08-22] MEDS ORDERED: KETOROLAC 30 MG/ML VIAL IV PRN (11:18)
[2023-08-22] MEDS: SODIUM CHLORIDE 0.9% 1,000 ML IV SCH ×2 (11:25→21:13)
--- NOTE | 2023-08-22 13:23 | Anesthesiology Progress Note ---
Date of Service August 22, 2023 Anesthesia Post Procedure Vital Signs Vital Signs: Temp Pulse Pulse Pulse Resp BP BP 08/22/23 12:26 36.8 C 81 18 122/77 08/22/23 12:04 36.8 C 90 18 126/81 08/22/23 11:20 36.9 C 91 H 18 121/77 08/22/23 11:05 37.3 C 96 H 17 129/81 08/22/23 10:55 86 14 136/86 08/22/23 10:45 91 H 16 146/86 H 08/22/23 10:35 91 H 17 130/89 08/22/23 10:27 36.4 C L 93 H 17 132/81 08/22/23 07:56 37.5 C 81 18 140/89 08/22/23 07:25 36.9 C 71 14 132/85 08/21/23 22:10 08/21/23 22:09 18 08/21/23 21:10 36.5 C 65 18 134/82 08/21/23 20:45 08/21/23 19:00 68 18 08/21/23 18:30 70 21 08/21/23 17:43 60 08/21/23 17:41 60 19 08/21/23 17:23 67 16 130/69 08/21/23 16:41 36.7 C 80 20 96/73 L Pulse Ox O2 Del Method O2 Flow Rate 08/22/23 12:26 94 Room Air 08/22/23 12:04 96 Room Air 08/22/23 11:20 94 Room Air 08/22/23 11:05 93 Room Air 08/22/23 10:55 92 Room Air 08/22/23 10:45 96 Oxymask 6 08/22/23 10:35 96 Oxymask 6 08/22/23 10:27 96 Oxymask 11 08/22/23 07:56 98 Room Air 08/22/23 07:25 98 Room Air 08/21/23 22:10 Room Air 08/21/23 22:09 08/21/23 21:10 100 Room Air 08/21/23 20:45 Room Air 08/21/23 19:00 08/21/23 18:30 08/21/23 17:43 08/21/23 17:41 99 Room Air 08/21/23 17:23 98 08/21/23 16:41 97 Room Air Pain Intensity Abdomen: Pain Intensity: 0 Transfer of Care Handoff Completed per policy Notes Mental Status: alert / awake / arousable and participated in evaluation Patient Amnestic to Procedure: Yes Nausea / Vomiting: adequately controlled Pain: adequately controlled Airway Patency, RR, SpO2: stable & adequate BP & HR: stable & adequate Hydration State: stable & adequate Anesthetic Complications: no major complications apparent and Pt Satisfied with anesthetic care
[2023-08-22] MEDS: ENOXAPARIN INJ 40 MG/0.4 ML SYR SQ SCH (21:14)
[2023-08-23] MEDS: PIPERACILLIN/TAZOBACTAM 4.5 GM in DEXTROSE 5% MINI-B 100 ML IV SCH ×2 (00:49→07:48)
[2023-08-23] MEDS: SODIUM CHLORIDE 0.9% 1,000 ML IV SCH (04:50)
--- NOTE | 2023-08-23 05:44 | Surgery Progress Note ---
Date of Service August 23, 2023 Assessment & Plan (1) Cholecystitis with cholelithiasis: Plan: Status post laparoscopic cholecystectomy on 08/22/2023 (postop day #1) Continue analgesics as needed Continue antiemetics as needed Continue diet as tolerated Continue antibiotics in form of Zosyn while hospitalized Check a.m. labs when available Mobilize as able Lovenox is in place for DVT prevention Admission and Anticipated Discharge Date Admission Date: August 21, 2023 Supervising Physician Co-Signing Physician Notes Patient is doing well postoperative day 1 laparoscopic cholecystectomy He can be discharged Subjective Patient is resting comfortably in bed. Since his surgery the patient says that he has tolerated solid food without nausea, vomiting, or worsening abdominal pain. He has not had a bowel movement since surgery but is passing flatus. He notes his pain is currently well-controlled Physical Exam Gastrointestinal (Abdomen): Incisions are clean, dry, and intact. Abdomen is soft and nondistended. Patient has appropriate tenderness near surgical incisions. Results & Data Vital Signs (Past 12 Hours) Vital Signs Temp Pulse Resp BP Pulse Ox O2 Del Method 08/23/23 02:56 36.5 C 81 14 124/75 97 Room Air 08/22/23 23:11 36.6 C 89 16 125/71 96 Room Air 08/22/23 19:09 37.3 C 87 16 131/79 95 Room Air PG Care Time/CCT Total # of Minutes Spent Total Time Spent with Patient: Total time spent is greater than 50% in coordination of care (as documented) at patient's floor/unit and/or counseling patient: Coding Level of Care Code 89996 Post Operative Follow-Up Diagnoses Calculus of gallbladder with acute cholecystitis without obstruction K80.00 Biliary obstruction: without biliary obstruction Cholecystitis acuity: acute Cholelithiasis location: gallbladder (1) Cholecystitis with cholelithiasis Biliary obstruction: without biliary obstruction Cholecystitis acuity: acute Cholelithiasis location: gallbladder Qualified Code(s): K80.00 - Calculus of gallbladder with acute cholecystitis without obstruction
[2023-08-23 07:12] LABS: Basophils # (auto) 0.05 K/uL (0.00-0.20); Basophils % (auto) 0.4 %; Immature Granulocytes # (auto) 0.04 K/uL (0.01-0.20); Immature Granulocytes % (auto) 0.3 %; Lymphocytes # (auto) 2.19 K/uL (1.20-3.40); Lymphocytes % (auto) 18.5 %; Mean Platelet Volume 9.9 fL (9.4-12.4); Monocytes # (auto) 1.05 K/uL (0.11-0.59); Monocytes % (auto) 8.9 %; Neutrophils # (auto) 8.51 K/uL (1.40-6.50); Neutrophils % (auto) 71.9 %; Platelet Count 321 K/uL (130-400); RDW Coefficient of Variation 13.2 % (11.5-14.5); RDW Standard Deviation 37.6 fL (36.4-46.3); White Blood Count 11.84 K/ul (4.8-10.8)
[2023-08-23 07:34] LABS: Alanine Aminotransferase 48 U/L (7-52); Albumin Level 3.6 gm/dl (3.4-5.0); Alkaline Phosphatase 82 U/L (34-104); Anion Gap 7 (3-11); BUN Creatinine Ratio 10.5 (10-20); Bilirubin,Total 0.8 mg/dl (0.2-1.0); Blood Urea Nitrogen 8 mg/dl (6-23); Calcium 8.6 mg/dl (8.6-10.3); Carbon Dioxide 23 mmol/L (21-32); Chloride 108 mmol/L (98-107); Creatinine Clr Calc Pharmacy 183.7 ml/min; Est GFR (African American) 143.9 ml/min; Est GFR (Non-African American) 124.2 ml/min; Glucose 94 mg/dl (70-99(Fasting)); Sodium 138 mmol/L (136-145); Total Protein 6.4 gm/dl (6.0-8.3)
== END 2023-08-23 10:07 | disposition home or self-care (01) ==
LOC: ED 16:33 → 3N 16:33
DX: K80.10 Calculus of gallbladder with chronic cholecystitis without obstruction